=== PATIENT | male | born 1960 | race Caucasian/White ===

== ENCOUNTER 2017-11-06 08:15 | Emergency (ER) | payer OTHER ==
[2017-11-06 08:25] VITALS: RESP 16
[2017-11-06] MEDS ORDERED: CEPHALEXIN 500 MG CAP PO ONE (09:03)
[2017-11-06] MEDS ORDERED: TDAP ADULT 0.5 ML INJ (BOOSTRIX) IM ONE (09:03)
--- NOTE | 2017-11-06 09:05 | EDPHY ---
H & P Time Seen by Provider: 11/06/17 08:57 HPI/ROS: CHIEF COMPLAINT: Right hand injury from table saw HISTORY OF PRESENT ILLNESS: 57-year-old left hand dominant male with unknown last tetanus complaining of accidental injury to his left 3rd and 4th digit dorsal aspect from a table saw injury this morning. No paresthesia. No extensor deficits. This was accidental. He also notes that when the piece of plastic he was cutting impacted the table side bounced back and impacted his right lower quadrant abdomen. No testicular or genitalia trauma. No abdominal pain. But he would like me to examine this area. PHYSICAL EXAM (Prior to examination, patient consented to physical exam, hands were washed and my usual and customary physical exam procedures followed) 1) GENERAL: Well-developed, well-nourished, alert and oriented. Appears to be in no acute distress. 2) HEAD: Normocephalic 3) HEENT: sclera anicteric 4) LUNGS: Breathing comfortably. 5) SKIN: Right middle digit dorsal at the PIP joint has a transverse 2 m laceration. Right finger dorsal aspect PIP joint and proximal phalanx abrasion. 6) MUSCULOSKELETAL: There are no gross extensor deficits to the middle or ring fingers at the MCP PIP or D IP. On examination of the wound however he appears to have approximately 50% laceration of the extensor tendon. 7) NEUROLOGIC: Full sensation distally 8) abdomen: Ecchymosis and abrasion of the right lower quadrant with localized tenderness only, no peritoneal sign Smoking Status: Never smoked Constitutional: Initial Vital Signs Temperature (C) 36.8 C 11/06/17 08:23 Heart Rate 71 11/06/17 08:23 Respiratory Rate 16 11/06/17 08:23 Blood Pressure 180/100 H 11/06/17 08:23 O2 Sat (%) 96 11/06/17 08:23 O2 Delivery Mode Room Air Allergies/Adverse Reactions: No Known Allergies Allergy (Unverified 10/08/09 21:03) Home Medications: Medication Instructions Recorded No Meds 10/08/09 Cephalexin [Keflex] 500 mg PO TID 7 Days cap 11/06/17 MDM/Departure - MDM Procedures: Procedure: Laceration repair. I explained the indications, risks and benefits for both laceration repair and anesthetic administration. Verbal consent was obtained from the patient . The laceration on the right 3rd and 4th digits were anesthetized using 0.5% bupivicaine without epinephrine digital nerve block. After anesthetic administered the patient was observed for a period of time and had no apparent adverse effects. The wound was cleaned, prepped, draped in normal sterile fashion and explored to its base. No foreign body seen, no foreign bodies palpated. The 4th digit has superficial abrasion which will be allowed to heal via secondary intention. The 3rd digit was closely examined and there is an approximately 50% extensor tendon laceration. The skin is closed with 9, 5 0 Prolene sutures The wound repair was complex. The procedure was performed by myself. Patient has been informed that scarring will occur, although efforts have been made to minimize this. Procedure: Splint AnAluminum finger splint in extension was applied by ER office equipment technician. After application of the splint I returned and re-examined the patient. The splint was adequately immobilizing the joint and distal to the splint the patient's circulation and sensation were intact. Patient shows no signs of compartment syndrome. Was given orthopedic precautions. Medications Given: Discontinued Medications Cephalexin HCl (Keflex) 500 mg PO EDNOW ONE PRN Reason: Protocol Stop: 11/06/17 09:04 Last Admin: 11/06/17 09:09 Dose: 500 mg Diphtheria/Tetanus/Acell Pertussis (Boostrix) 0.5 ml IM .ONCE ONE Stop: 11/06/17 09:04 Last Admin: 11/06/17 09:10 Dose: 0.5 ml ED Course/Re-evaluation: Care of patient under supervision of secondary supervising physician Dr Rodríguez. Consultation with on-call hand surgery Dr. Petersen at 10:24 a.m. Who agrees with plan of closure of skin, splinting, antibiotics, follow up in office later this week (today is Monday). The patient also noted that when the piece of plastic he was cutting hit a table saw it hit him in the right lower quadrant abdomen and requested I examine this area. He has no diffuse abdominal pain however he is noted to have localized abrasion and ecchymosis. A at this time I do not think that CT imaging the abdomen pelvis is indicated as I have a low index of suspicion for traumatic intra abdominal pathology. Nonetheless I have recommended close observation and if he develops a diffuse abdominal pain, lightheadedness, needs to return to the ER for re-evaluation. Patient is agreeable with this plan. Usual and customary discharge precautions and instructions provided. - Depart Disposition: Home, Routine, Self-Care Clinical Impression: Finger laceration involving tendon Qualifiers: Encounter type: initial encounter Qualified Code(s): S61.219A - Laceration without foreign body of unspecified finger without damage to nail, initial encounter; S66.929A - Laceration of unspecified muscle, fascia and tendon at wrist and hand level, unspecified hand, initial encounter; S66.929A - Laceration of unspecified muscle, fascia and tendon at wrist and hand level, unspecified hand, initial encounter Condition: Good Instructions: Finger Laceration (ED), Tendon Laceration (ED) Additional Instructions: Return to the ER if you develop redness, swelling, discharge, warmth to the wound, red streaks going up your arm, or any other symptoms that concern you. Prescriptions: Cephalexin [Keflex] 500 mg PO TID 7 Days cap Referrals: Maninder Petersen MD [Medical Doctor] - As per Instructions NONE *PRIMARY CARE P,. [Primary Care Provider] - As per Instructions
[2017-11-06 11:15] VITALS: BP 135/76; PULSE 65; TEMP 98.1; O2SAT 97
== END 2017-11-06 11:14 | disposition home or self-care (01) ==
PROC: 0HQFXZZ Repair Right Hand Skin, External Approach (ICD-10-PCS; principal; 2017-11-06)
DX: S66.322A Laceration of extensor muscle, fascia and tendon of right middle finger at wrist and hand level, initial encounter (principal); Z23 Encounter for immunization; W31.2XXA Contact with powered woodworking and forming machines, initial encounter; Y93.89 Activity, other specified
CPT/HCPCS: L3925

== ENCOUNTER → 2018-03-22 | Outpatient (CLI) | payer OTHER | LOC: CIMAGING 18:31 | PROVIDERS: ATTEND Family Medicine | DX: S69.91XA Unspecified injury of right wrist, hand and finger(s), initial encounter (principal) | CPT/HCPCS: 73110-PO ==

== ENCOUNTER → 2018-08-18 | Outpatient (CLI) | payer OTHER | LOC: FIMAGING 09:16 | PROVIDERS: ATTEND Physician Assistant | DX: R91.1 Solitary pulmonary nodule (principal) ==